=== PATIENT | male | born 1955 | race Caucasian/White ===

== ENCOUNTER 2019-08-25 16:20 | Emergency (ER) | payer MEDICARE ==
[~2019-08-25] VITALS: Ht 175.3 cm; Wt 61.2 kg
[2019-08-25] MEDS ORDERED: ONDANSETRON HCL/PF 4 MG/2 ML VIAL ONE (16:44)
[2019-08-25] MEDS ORDERED: IV NS 0.9% 1,000 ML BAG IV ONE (17:00)
[2019-08-25] MEDS ORDERED: ONDANSETRON HCL/PF 4 MG/2 ML VIAL IVP ONE (17:00)
[2019-08-25 17:10] LABS: BASOPHILS # (AUTO) 0.1 /CMM (0.0-0.2); BASOPHILS % (AUTO) 0.5 % (0.0-2.0); EOSINOPHILS % (AUTO) 1.3 % (0.0-6.0); HEMATOCRIT 44 % (39-51); HEMOGLOBIN 15.2 g/dL (13.5-17.5); LYMPHOCYTES # (AUTO) 1.7 /CMM (0.8-4.8); LYMPHOCYTES % (AUTO) 15.1 % (20.0-44.0); MEAN CORPUSCULAR HGB CONC 35 g/dl (31.0-36.0); MEAN CORPUSCULAR VOLUME 94 fL (80-96); MONOCYTES # (AUTO) 0.8 /CMM (0.1-1.30); MONOCYTES % (AUTO) 7.2 % (2.0-12.0); NEUTROPHILS # (AUTO) 8.3 /CMM (1.8-8.9); NEUTROPHILS % (AUTO) 75.9 % (43.0-81.0); PLATELET COUNT (AUTO) 361 /CMM (150-450); RED BLOOD CELL COUNT(AUTO) 4.67 MIL/uL (4.5-6.0); WHITE BLOOD COUNT (AUTO) 10.9 K/uL (4.3-11.0)
[2019-08-25 17:49] LABS: CALCIUM, SERUM 9.9 mg/dL (8.5-10.1); CARBON DIOXIDE 24 mmol/L (21-32); CHLORIDE 95 mmol/L (98-107); GLUCOSE 89 mg/dL (74-106); POTASSIUM 3.7 mmol/L (3.5-5.1); SODIUM SERUM 135 mmol/L (136-145); UREA NITROGEN, BLOOD 7 mg/dL (7-18)
--- NOTE | 2019-08-25 17:49 | NUR ---
patient came in to the er c/o sob chest pain and unable to swallow medications. On room air, breathing evenly and unlabored. connected to the monitor and pulse ox. kept comfortable, will continue to monitor accordingly.
[2019-08-25 17:55] LABS: ALANINE AMINOTRANSFERASE 18 U/L (12-78); ALBUMIN 4.3 g/dL (3.4-5.0); ALKALINE PHOSPHATASE 48 U/L (46-116); ASPARTATE AMINOTRANSFERASE 18 U/L (15-37); BILIRUBIN,DIRECT 0.3 mg/dL (0.0-0.2); LIPASE 177 U/L (73-393); TOTAL PROTEIN, SERUM 7.7 g/dL (6.4-8.2)
[2019-08-25] MEDS ORDERED: LEVE500T9 PO (18:18)
[2019-08-25] MEDS ORDERED: ATOR40TA PO (18:18)
[2019-08-25] MEDS ORDERED: QUET200T PO (18:18)
[2019-08-25] MEDS ORDERED: METO-357 PO (18:18)
[2019-08-25] MEDS ORDERED: ASPI-605 PO (18:18)
[2019-08-25] MEDS ORDERED: MESA500C PO (18:18)
[2019-08-25] MEDS ORDERED: FAMO20TA8 PO (18:18)
[2019-08-25] MEDS ORDERED: PANT40TA4 PO (18:18)
--- NOTE | 2019-08-25 19:00 | NUR ---
[facility] BED 305-A. FOR REPORT CALL MARIA ELENA DUNNE [phone] ACCEPTING MD WARD
--- NOTE | 2019-08-25 19:11 | NUR ---
Called [facility] and spoke to Conor DUNNE and report given for chantel.
--- NOTE | 2019-08-25 20:01 | NUR ---
PER CM, AMBULANCE ETA 2100
[2019-08-25 20:28] VITALS: BP 125/70
--- NOTE | 2019-08-25 20:32 | NUR ---
PT RESTING. AWAITING TRANSPORT. DENIES PAIN. VSS.
== END 2019-08-25 21:30 | disposition short-term general hospital (02) ==
LOC: ER 16:29
DX: R13.10 Dysphagia, unspecified (principal); R63.4 Abnormal weight loss; E86.0 Dehydration; R00.0 Tachycardia, unspecified; I10 Essential (primary) hypertension; Z86.73 Personal history of transient ischemic attack (TIA), and cerebral infarction without residual deficits; Z79.899 Other long term (current) drug therapy; Z90.89 Acquired absence of other organs
CPT/HCPCS: 36415; 71045; 74176; 80048; 80076; 83690; 84484; 85025; 85730; 87081; 93005; 96361; 96374; 99285; J2405; J7030